=== PATIENT | female | born 1980 | race Caucasian/White ===

== ENCOUNTER 2020-09-17 09:00 | Outpatient (RCR) | payer MEDICAID, SELFPAY ==
--- NOTE | 2020-09-17 09:05 | BH.SGPN.GN ---
This psychotherapy group was provided via telehealth using two-way, real-time interactive telecommunication technology between the patients and the provider.?The interactive telecommunication technology included audio and video.? ?The patient was offered telemedicine as an option for care delivery during the COVID-19 pandemic and consented to this option. ?Patient location: [place] ?Provider located at [facility] Behaviors/Verbalizations/Mental Status: []Client alert and oriented, neatly dressed and groomed. Eye contact poor. Motor activity appropriate. Speech within normal limits. Affect flat, mood anxious. Thoughts linear, logical, no signs of hallucinations or delusions. Reviewed client?s symptom tracker, no risk for suicidal ideation, plan, or intent as of 09/17/20. Client Response/Progress/Benefit: []Client responded well to session, receptive to encouragement from group. Client's first day of IOP and reports feeling overwhelmed this morning. Client stated she came to IOP due to severe anxiety that was impacting client's ability to function at work. Client shared I don't know how to deal with it and I want to learn to cope. Client reports having thoughts that her co-workers are against her and is constantly worried about what people think of her. Received supportive feedback from peers and appeared to benefit from verbalizing her stressors. Will continue IOP tx to prevent decompensation, improve daily functioning, and reduce negative thoughts. Narrative Note: []
--- NOTE | 2020-09-17 11:19 | BH.SGPN.GN ---
This psychotherapy group was provided via telehealth using two-way, real-time interactive telecommunication technology between the patients and the provider. The interactive telecommunication technology included audio and video. The patient was offered telemedicine as an option for care delivery during the COVID-19 pandemic and consented to this option. Patient location: [place] Provider located at [facility] Behaviors/Verbalizations/Mental Status: []Client alert and oriented, casual dress, hygiene fair. Eye contact fair to good. Motor activity appropriate. speech and tone WNL. Affect constricted. mood anxious, depressed. Thoughts linear, logical, no signs of hallucinations or delusions. Client Response/Progress/Benefit: []Client first day in IOP tx. She remained engaged in session AEB listening throughout discussion and actively taking notes. Client attentive during psychoeducation about problem solving protocol and was nodding as well as taking notes throughout. Client provided limited input but listened as the group brainstormed strategies to promote making progress towards their desired chapter. Client completed the worksheet in which participants were challenged to identify one current barrier preventing progress and steps to begin addressing this barrier; however, declined to share with the group. Appeared to benefit from increased insight regarding her current ?Chapter? in life and reviewing strategies for promoting continued progress and prevent regression. Progress limited as client first day in IOP program. Will continue IOP tx to prevent decompensation, improve sx management, and increase healthy coping. Narrative Note: []
--- NOTE | 2020-09-18 09:00 | BH.SGPN.GN ---
This psychotherapy group was provided via telehealth using two-way, real-time interactive telecommunication technology between the patients and the provider. The interactive telecommunication technology included audio and video. The patient was offered telemedicine as an option for care delivery during the COVID-19 pandemic and consented to this option. Patient location: [place] Provider located at [facility] Behaviors/Verbalizations/Mental Status: []Client alert and oriented, casually dressed and groomed. Eye contact good. Motor activity WNL. Speech pressured. Affect congruent, mood anxious and depressed. Thoughts linear, logical, no signs of hallucinations or delusions. Reviewed client?s symptom tracker, no risk for suicidal ideation, plan, or intent as of 09/18/20. Client Response/Progress/Benefit: []Pt responded well to session, actively listening throughout and openly processed with group. Pt reports feeling ?stressed and anxious? this morning as she is still adjusting to group setting and is continuing to ruminate on a stressor experienced previous night. Pt noted that her daughter had been struggling with her homework and that pt was unable to help when she asked as the material was different from what pt had learned in school. Pt expressed that her daughter had become upset which made her anxious as well. She did well to identify healthy skills used in the moment such as positive self-talk and self-soothing to calm her daughter which aided in calming pt as well. Noted current stressor as having to help her daughter with homework again tonight but discussed trying to go into it more open minded and flexible. Pt receptive of and appeared to benefit from supportive feedback and encouragement provided by group. Recommended continued IOP tx improve anxiety management and though challenging skills, improve stability, as well as prevent decompensation. Narrative Note: []
--- NOTE | 2020-09-18 11:08 | BH.NA ---
Physical Data - Height/Weight Height: 1.5 m Weight:: 58.967 kg Weight in Pounds: 130.0 lbs Current Medication Compliance - Medication Compliance Do you take your medication as prescribed?: Yes Nutritional History - Appetite Nutritional Instructions:: If client shows signs of a swallowing problem, weight change of 10 pounds or more in the last month, or is on a diabetic diet, the physician will review and request a dietitian consult, as appropriate. All unintentional weight loss will be referred to the physician for decision on need for dietitian consult. Describe your appetite:: Good Additional nutritional information:: Client reports she is currently trying to lose weight. Functional Assessment - Sleep Pattern Describe any problems with sleeping: Client reports poor sleep due to ruminations, reporting 4-6 hours of sleep per night. Sensory/Communication Assess - Communication Problems Do you have difficulty understanding what people are saying?: No Medical Problems/History - Pain Assessment Do you have acute or chronic pain?: No Surgical History - Surgical History Have you had any surgeries? If so, list type and date:: No Substance Abuse - Substance Abuse Please describe substance abuse in the last 30 days:: Client denies alcohol, tobacco or drug use. Reports drinking one caffienated beverage per day. Mental Status Summary - Mental Status Significant Findings/Observations on Appearance and Mood:: Client alert and oriented x 4. Client assessed via telehealth. Clients voice normal rate and clear. Client appears mildly anxious. Client denies delusions/hallucinations. Client denies SI. Suicide Assessment - Suicidal Ideation Are you currently or have you been suicidal in the past?: No Suicidal Intentional Rating Scale (SIRS): No suicidal thoughts (past or present) Physician Notification: If Active suicidal thoughts/Will not contract for safety is checked, contact physician and document in the Physician Notification section below. Past Psychiatric History - MH Treatment Hx Past Psychiatric Medications:: Zoloft, Buspar, Prozac, Lexapro Age of first mental health symptoms: Client reports being diagnosed with bipolar only in the last few months. Client reports being diagnosed with anxiety, PTSD, and panic disorder within the last year. Client states she was on antidepressants for short periods of time in her 20's. Describe (age, circumstance, etc) any past hospitalizations: None. Current providers for mental health treatment (counselor, psychiatrist, mattress spring encaser, etc.): Client has team leader/research psychologist at [place] [id number] and counseling at [facility]. Fall Risk Assessment - Age Age: Less than 60 - Mental Status Mental Status: Willing & able to ask for assistance when needed - Physical Status Physical Status: No problems - Impairments Impairments: None - Elimination Elimination: Continent AND independent - Gait or Balance Gait or Balance: Walks independently - Hx of Falls History of falls in the past 6 months: No known history - Medications/Substances Psychotropics:: Antidepressants, Mood stabilizers Medications/substances used within the past 24 hours or ordered to administer: 1-2 of the medications/substances listed above - Total Score Total Points:: 1 RN Summary of Impressions - Impressions Recommendations: Include psychiatric and medical issues, treatment planning recommendations, and discharge planning needs. Impressions: Psychiatric Issues: bipolar disorder, NOS; generalized anxiety disorder, PTSD - Level of Care How do the client's current symptoms and functional deficits support need for this level of care?: Client states her mental health has been suffering since spring when the Covid pandemic started. Client reports anxiety over her daughter needing to do virtual learning and fear of her older parents getting sick from pandemic. Client is currently on short FMLA from work but states much anxiety over whether she will be required to go back to work in current mental health state. Client reports panic attacks almost daily, reporting chest pain, sweating, shortness of breath with attacks. Client also reports much rumination about work, stating with Covid pandemic, more things have been expected of her at work without more time given to do work. Client reports decreased sleep, decreased energy, hopelessness, and feelings of worthlessness. Client denies SI. IOP will promote gains and prevent further decompensation while providing social support and skills training.
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
--- NOTE | 2020-09-18 12:46 | BH.PSY.EVA_ITS ---
Initial Treatment Plan - Patient Information Visit Information: ADMISSION DATE: EXPECTED LOS: 4-6 weeks - Problems/Symptoms Problem #1:: Depression Symptom:: Sadness, anhedonia, decreased concentration, hopelessness, worthlessn ess, guilt, decreased appetite, biological disruption of sleep Problem #2:: Anxiety Symptom:: Rumination, panic attacks, avoidance, flashbacks, re-experiencing
--- NOTE | 2020-09-19 09:00 | BH.SGPN.GN ---
This psychotherapy group was provided via telehealth using two-way, real-time interactive telecommunication technology between the patients and the provider. The interactive telecommunication technology included audio and video. The patient was offered telemedicine as an option for care delivery during the COVID-19 pandemic and consented to this option. Patient location: [place] Provider located at [facility] Behaviors/Verbalizations/Mental Status: []Client alert and oriented, casually dressed. Eye contact poor. Motor activity appropriate. Speech within normal limits. Affect congruent, mood anxious. Thoughts linear, logical, no signs of hallucinations or delusions. Reviewed client?s symptom tracker, no risk or plan for suicide ideation as of 09/19/20. Client Response/Progress/Benefit: []Client responded well to group, engaged and participated throughout discussion. Client reported feeling anxious as she struggles to help her daughter with her math homework. Client shared she communicated with the adjunct mathematics instructor, where he reassured her that she was not alone and provided positive feedback. Client used positive thinking and affirmations to challenge negative thinking. Client benefited from group as client used healthy coping skills and communicated effectively. Client continues to struggle with managing anxiety and communicating her needs with family. Client will continue IOP to manage anxiety symptoms, improve daily functioning, and increase the use of healthy coping skills. Narrative Note: []
--- NOTE | 2020-09-19 10:10 | BH.SGPN.GN ---
This psychotherapy group was provided via telehealth using two-way, real-time interactive telecommunication technology between the patients and the provider. The interactive telecommunication technology included audio and video. The patient was offered telemedicine as an option for care delivery during the COVID-19 pandemic and consented to this option. Patient location: [place] Provider located at [facility] Behaviors/Verbalizations/Mental Status: []Client alert and oriented, neatly dressed and groomed. Eye contact poor. Motor activity appropriate. Speech within normal limits. Affect constricted , mood anxious. Thoughts linear, logical, no signs of hallucinations or delusions. Client Response/Progress/Benefit: []Client was an active participant AEB contributing to discussion and participating in activity. Connected with the topic of pitfalls and helped the group discuss barriers that keep them from choosing a healthier path to mental wellness such as pitfalls. Group worked together to identify examples of personal pitfalls which included; isolation, low self-esteem, wanting to quit, increased negative distortions, increased hopelessness, feeling overwhelmed,increased anxiety and stress, and feeling of burnout. Client shared personal examples of pitfalls such as catastrophizing and increased anxiety. Engaged during the activity and took on a leadership role to communicate with other group members to reach the group?s goal. Client benefited from group as she recognized the importance of trying new paths and understanding when communication is necessary. Client will continue IOP to reduce intensity of anxiety, increase the use of healthy coping skills, and improve daily functioning. Narrative Note: []
--- NOTE | 2020-09-19 11:11 | BH.SGPN.GN ---
Behaviors/Verbalizations/Mental Status: []Client alert and oriented, casual dress, hygiene tended to. Eye contact good. Motor activity appropriate. speech and tone WNL, limited input provided. Affect constricted, mood anxious. Thoughts linear, logical, no signs of hallucinations or delusions. Client Response/Progress/Benefit: []Client receptive of session, engaged throughout AEB providing input during activity and discussion. Continues to remain passive in participation though actively taking notes and reports applying materials learned outside of tx environment. Client attentive as group made connections between skills used to overcome ?pitfalls? in activity and addressing own personal pitfalls impacting mental health. She completed a worksheet identifying personal pitfalls impacting mental health progress; however, declined to share personal pitfalls with group. Client again remained attentive as group worked to brainstorm strategies to overcome pitfalls, though again declined to share a healthy skill she can use to work towards addressing one of her own identified pitfalls. Appeared to benefit from gaining insight on personal pitfalls and strategies to overcome these pitfalls. Progress limited as client continues to struggle with engagement in group, however does report improved mood related to encouragement provided by fellow participants. Client to continue IOP level of care to increase insight into healthy skills, improve emotion regulation, and prevent decompensation. Narrative Note: []
--- NOTE | 2020-09-19 11:42 | BH.COMM_ITS ---
Communication Note - Communication with Client Communication Note: Therpaist met with client to establish and build rapport. Client's psychosocial stressors included being unable to concentrate at work, always putting others first, and difficulty communicating her needs and feelings with others, which led her to IOP treatment. Client and therpaist discussed the importance of self-care and putting self first. Client presented as anxious and identified that a change in her routine is a trigger. This counseling session was provided via telehealth using two-way, real-time interactive telecommunication technology between the patient and the clinician. The interactive telecommunication technology included audio and video. The patient was offered telehealth as an option for care delivery during the COVID-19 pandemic and consented to this option. Patient location: [place]. Provider located at [facility]
--- NOTE | 2020-09-20 09:05 | BH.SGPN.GN ---
This psychotherapy group was provided via telehealth using two-way, real-time interactive telecommunication technology between the patients and the provider. The interactive telecommunication technology included audio and video. The patient was offered telemedicine as an option for care delivery during the COVID-19 pandemic and consented to this option. Patient location: [place] Provider located at [facility] Behaviors/Verbalizations/Mental Status: []Client alert and oriented, casual dress, hygiene tended to. Eye contact good. Motor activity appropriate. Speech within normal limits. Affect constricted, mood anxious. Thoughts linear, logical, no signs of hallucinations or delusions. Reviewed client?s symptom tracker, pt denies current suicidal thoughts or intention to date. Client Response/Progress/Benefit: []Patient responded well to session AEB actively listening and willing to share thoughts and feelings with group. Patient stated emotion today as ?really anxious? which she attributed to experiencing a panic attack prior to logging online for IOP group this morning. Pt did well to identify triggers for this and noted that running late with getting her kids ready for school had left her feeling overwhelmed. Expressed her boyfriend was supportive but does not fully understand her anxiety so she made the choice to follow-through with plans to attend group as she thought ?It might make me feel better?. Pt receptive of and appeared to benefit from supportive feedback and suggestions for reducing her anxiety during the break provided by the group. Pt expressed plans to take a break and go outside to ground herself as a result. Progress limited as pt continues to struggle with significant anxiety impacting daily functioning. Recommended continued IOP treatment to further increase anxiety management skills, continue to work on reducing anxiety provoking thoughts, as well as prevent decompensation. Narrative Note: []
--- NOTE | 2020-09-20 10:18 | BH.SGPN.GN ---
This psychotherapy group was provided via telehealth using two-way, real-time interactive telecommunication technology between the patients and the provider.?The interactive telecommunication technology included audio and video.? ?The patient was offered telemedicine as an option for care delivery during the COVID-19 pandemic and consented to this option. ?Patient location: [place] ?Provider located at [facility] Behaviors/Verbalizations/Mental Status: []Client alert and oriented, neatly dressed and groomed. Eye contact poor. Motor activity appropriate. Speech within normal limits. Affect constricted, mood anxious. Thoughts linear, logical, no signs of hallucinations or delusions. Client Response/Progress/Benefit: []Client active participant as shown by active listening and contributing in the small group discussion. Client listened to the discussion of self-care and the consequences of not practicing self-care. Client agreed with peers that it is important to practice self-care, but they all struggle with through. Group discussed consequences of not practicing self-care such as: poor physical health, poor work performance, and poor emotional regulation. Client participated in the discussion of the common myths about self-care and participated in the discussion on debunking of these myths. Client nodded that she has believed in some of these myths and made excuses to not practice self-care. Client?s group challenged the myths that self-care means a person is weak and self-care in unnecessary. Client seemed to benefit from increased awareness of the importance of self-care and challenging common myths that prevent practicing self-care. Will continue IOP tx to reduce negative thinking that reinforces depression and to improve work-related functioning. Narrative Note: []
--- NOTE | 2020-09-20 11:20 | BH.SGPN.GN ---
Behaviors/Verbalizations/Mental Status: []Client alert and oriented, casually dressed, hygiene appeared to be tended to. Eye contact fair. Motor activity appropriate. Speech within normal limits. Affect constricted, mood dysthymic. Thoughts linear, logical, no signs of hallucinations or delusions. Client Response/Progress/Benefit: []Client passive participant AEB client providing input when elicited by therapist, however appeared to listen attentively to peers. Listened to group discussion on the various areas of self-care, benefits, and types of self-care activities for each area. Client completed worksheet in which she identified current self-care practices and what self-care activities she wants to start using. Client reported she will focus on improving her physical self-care because she doesn't have healthy eating practices. Client stated she will work on improve self-care by focusing on eating at least one healthy meal a day. Progress noted as client has showed increased engagement in group AEB client being willing to share some of her thoughts and feelings with group. Will continue IOP tx to further promote the use of self-care practice, improve view of self and prevent decompensation. Narrative Note: []
--- NOTE | 2020-09-20 11:45 | BH.MDN ---
Multi-Disciplinary Note - Note 30-min Individual Time Started:: 12:27 Date: 09/20/20 Purpose of session/treatment goals addressed:: Purpose of session today was to discuss the importance and benefits from using healthy coping skills. Healthy coping skills that were discussed included: healthy communication with boyfriend, creating to-do lists, and practicing self-care. Symptoms/Behavior:: This counseling session was provided via telehealth using two-way, real-time interactive telecommunication technology between the patient and the clinician. The interactive telecommunication technology included audio and video. The patient was offered telehealth as an option for care delivery during the COVID-19 pandemic and consented to this option. Patient location: [place]. Provider located at [facility] Eye Contact:: Poor Motor Activity:: Restless Appearance:: Casual Speech:: Rapid Mood:: Anxious Affect:: Flat Thoughts:: Racing Staff Interventions:: Therapist engaged client by discussing the importance of using healthy coping skills. Therapist discussed how creating to-do lists can be benefical, as it is important to only allow a few priorities, and can be harmful to have too much on one's plate. Therapist discussed self-care and the strategy of AMARA. Therapist also engaged client in healthy communication on her thoughts and feelings when anxiety or distortive thinking increases. Client Response:: Client was engaged in discussion and responded well to session today. Client shared she does not know what to do with her time when group ends and when her daughter gets home from school. Client shared she never gets a break from her children as her boyfriend will leave her to handle situations alone. Client reported she needs breaks too and discussed with the therapist how to incorporate healthy communication to her boyfriend. Client also reported panic attacks increase when feeling out of control, irritated, and there is poor communication. Client reports her self-care consists of watching tv, taking walks, showering, and eating. Using the AMARA, client shared she will complete one thing to accomplish over the weekend, eating better and at least one meal a day to allow her to feel close to herself, and spending quality time with her daughter as one thing to enjoy over the weekend. Risks/Concerns:: Client denies any suicidal risk, ideation, or plan as of 09/20/20. Client reports anxious for this weekend as she will have many children at her home. Progress Toward Goals/Plan:: Client has learned some healthy coping skills to practice throughout the weekend to reduce anxiety symptoms. Client endorses anxiety, low self-esteem, and cognitive distortions.Client will continue IOP to increase the use of healthy coping skills, decrease depressive and anxiety symptoms, and improve daily functioning. Time Stopped:: 13:03
--- NOTE | 2020-09-20 14:58 | BH.MTP_ITS ---
Master Treatment Plan - Patient Information Program Physician:: Dr. Tiffany Joseph Primary Therapist:: Payton Suarez - Psychiatric Diagnoses Psychiatric Diagnoses:: Bipolar disorder, NOS; generalized anxiety disorder; PTSD - Estimated LOS Estimated LOS (in weeks):: 2 Problem/Goal #1 - Problem/Goal #1 Stated Goal:: Client will increase mood stability, reduce depression, and reduce isolative behaviors due to Bipolar disorder through the Intensive Outpatient Program. Description of Barriers: Client was newly diagnosed with bipolar, NOS in July 2020 and presents as depressed and anxious. Client is still learning about bipolar D/O and the impact is has on other MH symptoms. Client stated her workplace is a stressor and only has two weeks off to meet IOP treamtent goals. Client does not have much support, as she only relies on her boyfriend and counselor, describes herself as not a talker. Client reports many traumatic experiences growing up. Functional Impact: Client is a 40 year old female with a hx of Bipolar II. JOSE, Panic D/O, PTSD, & Boderline PD. No hx of psychiatric admissions. Referred by outpatient psychiatric due to mental health symptoms impacting her functioning. Client was recently placed on FMLA for the next two weeks. Client reports daily panic atacks at work, inablility to focus or concentrate, increased stress, and constant worry. Client reports she constantly dreads going to work and ruminates excessively which impacts sleep. Worsening symptoms since 07/2020. States I have to force myself out of bed I'm not good enough. Endorses poor sleep, poor appetite, low energy, low motivation, hopelessness, worthlessness, isolation, avoidance, and anhenonia. Significant tears and worry about COVID pandemic as well. Due to mental helth symtpoms and stressors at work, she is fearful of losing her job and causing conflict with coworkers. Denies suicidal ideations, plan, or intent. No hx of depression. Denies HI or psychosis. Denies substance abuse. Medication compliant. Due to daily panic attacks, MH symptoms impacts functioning and benefits from traditional outpatient recommended IOP level of care. Goal Relevant Strengths/Supports: Client presents as a motivated and a kind woman who wishes to improve her mental health. Client has experienced many traumatic experiences and for the first time is putting herself first. Client is willing to put in the work and effort to improve her mood and learn healthy coping skills. Client is supported from her boyfriend and children. Client wants to increase self-awareness by coming almost daily for treatment, as she is only in treatment for two weeks. - Objectives Objective #1 Stated Objective: Client will learn and utilize 2-3 healthy coping strategies to better manage depressive and mood symptoms. Interventions: Through group and individual sessions, therapist will help client identify triggers and warning signs of depression and emotional dysregulation including emotional, physical, and behavioral changes. Therapist will teach client various coping skills to manage her symptoms and give client tangible resources to use to regulate emotions. Therapist will use cognitive restructuring techniques and help client gain awareness of negative thoughts that reinforce depressive cycles. Therapist will help client incorporate behavioral activation and assist client in setting SMART goals. Discharge Criteria: Client will have met this goal when she can report learning and using at least 2 coping skills to manage depressive symptoms. Target Date: 09/27/20 Review Date: 09/27/20 Problem/Goal #2 - Problem/Goal #2 Stated Goal:: Client will increase emotional regulation and reduce intensity and duration of anxiety symptoms. Description of Barriers: Client was newly diagnosed with bipolar, NOS in July 2020 and presnets as depressed and anxious. Client is still learning about bipolar D/O and the impact is has on other MH symptoms. Client stated her workplace is a stressor and only has two weeks off to meet [facility] treamtent goals. Client does not have much support, as she only replies on her boyfriend and counselor as she is not a talker. Client reports many traumatic experiences growing up and her mother recently . Functional Impact: Client is a 40 year old female with a hx of Bipolar II. JOSE, Panic D/O, PTSD, & [place] PD. No hx of psychiatric admissions. Referred by outpatient psychiatric due to mental health symptoms impacting her functioning. Client was recently placed on FMLA for the next two weeks. Client reports daily panic atacks at work, inablility to focus or concentrate, increased stress, and constant worry. Client reports she constantly dreads going to work and ruminates excessively which impacts sleep. Worsens symptoms since 07/2020. States I have to force myself out of bed I'm not good enough. Endorses poor sleep, poor appetite, low energy, low motivation, hopelessness, worthlessness, isolation, avoidance, and anhenonia. Significant tears and worry about COVID pandemic as well. Due to mental helth symtpoms and stressors at work, she is fearful of losing her job and causing conflict with coworkers. Denies suicidal ideations, plan, or intent. No hx of depression. Denies HI or psychosis. Denies substance abuse. MEdication compliant. Due to daily panic attacks, MH symptoms impacts functioning and benefits from traditional outpatient recommended IOP level of care. Goal Relevant Strengths/Supports: Client presents motivated and a kind woman who wishes to improve her mental health. Client has experienced many traumatic ex periences and for the first time is putting herself first. Client is willing to put in the work and effort to improve her mood and learn healthy coping skills. Client is supported from her boyfriend and children. Client wants to increase self-awareness by coming almost daily for treatment, as she is only in treatment for two weeks. - Objectives Objective #1 Stated Objective: Client will identify 2-3 anxiety and crisis triggers and 2 calming coping skills to use when feeling anxious to reduce anxiety Interventions: Therapist will help client increase awareness of anxiety and crisis triggers and educate client on ways anxiety impacts overall health. Therapist will teach client various calming strategies to promote emotional regulation and reduction of anxiety. Therapist will assist client in identifying warning signs and teach client techniques to reduce, remove, or accept stressors to reduce anxiety. Therapist will discuss the importance of self-care, healthy relationships, and boundaries. Discharge Criteria: Client will have accomplished this goal when can report at least 2 triggers for anxiety and state using 2 calming strategies to manage symptoms. Target Date: 09/27/20 Review Date: 09/27/20
--- NOTE | 2020-09-23 09:00 | BH.SGPN.GN ---
This psychotherapy group was provided via telehealth using two-way, real-time interactive telecommunication technology between the patients and the provider. The interactive telecommunication technology included audio and video. The patient was offered telemedicine as an option for care delivery during the COVID-19 pandemic and consented to this option. Patient location: [place] Provider located at [facility] Behaviors/Verbalizations/Mental Status: []Client alert and oriented, casually dressed. Eye contact good. Motor activity appropriate. Speech within normal limits. Affect flat, mood anxious. Thoughts linear, logical, no signs of hallucinations or delusions. Reviewed client?s symptom tracker, no risk or plan for suicide ideation as of 09/23/20. Client Response/Progress/Benefit: []Client responded well to session, engaged and participated throughout discussion. Client reported challenging her negative thoughts this weekend as she felt frustrated with her boyfriend. Client shared she has a cognitive distortion of ?something bad will happen? and then will look for evidence to prove herself correct. Client benefited from group as other group members gave positive feedback on challenging distortions and looking for positive evidence to prove her distortions wrong. Progress was made as client was able to challenge distortions. Client will continue IOP to increase the use of healthy coping skills and decrease MH symptoms. Narrative Note: []
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
--- NOTE | 2020-09-23 10:05 | BH.SGPN.GN ---
This psychotherapy group was provided via telehealth using two-way, real-time interactive telecommunication technology between the patients and the provider. The interactive telecommunication technology included audio and video. The patient was offered telemedicine as an option for care delivery during the COVID-19 pandemic and consented to this option. Patient location: [place] Provider located at [facility] Behaviors/Verbalizations/Mental Status: []Client alert and oriented, casually dressed and appropriately groomed. Eye contact fair. Motor activity appropriate. Speech within normal limits. Affect congruent, mood anxious. Thoughts linear, logical, no signs of hallucinations or delusions. Client Response/Progress/Benefit: []Client receptive to session, passive participant and listened attentively to peers. Listened as the group brainstormed the positive and negative aspects of stress on physical and mental health. Client often nodding at examples of how stress impacts the body. Client reports she does not take time for breaks when client is stressed. Client did not go into detail about the stressors in client?s jar, but client did mention feeling anxious about work and family. Seemed to benefit from increased awareness of personal stressors and understanding impact of stress of the mind and body. Progress noted as client continues to take notes and gain insight during group. Client to continue IOP tx to promote use of healthy coping skills and reduce negative thinking that reinforces anxiety. Narrative Note: []
--- NOTE | 2020-09-23 11:11 | BH.SGPN.GN ---
This psychotherapy group was provided via telehealth using two-way, real-time interactive telecommunication technology between the patients and the provider. The interactive telecommunication technology included audio and video. The patient was offered telemedicine as an option for care delivery during the COVID-19 pandemic and consented to this option. Patient location: [place] Provider located at [facility] Behaviors/Verbalizations/Mental Status: [] Client alert and oriented, casually dressed and groomed. Eye contact good. Motor activity appropriate. Speech within normal limits. Affect congruent, mood depressed and anxious. Thoughts linear, logical, no signs of delusions or hallucinations. Client Response/Progress/Benefit: [] Client engaged in session AEB listening attentively to others and taking notes throughout. Client remained attentive during discussion about the 4 A's of managing stress. Client identified wanting to improve her ability to use acceptance, as well as adapt her mindset in regard to the COVID-19 pandemic. Discussed plans to use positive self-talk to increase personal acceptance of aspects of the pandemic outside her control as well as adapt her mindset to change her outlook on and begin addressing those with in her control. Reported plans to speak with her boss about delaying return to work. Client seemed to benefit from increased awareness of the impact of stress on mental health and increasing repertoire of stress management strategies. Progress noted in pt increased engagement in treatment environment. Will continue IOP tx to promote use of healthy coping skills, improve anxiety management, as well as prevent decompensation. Narrative Note: []
--- NOTE | 2020-09-23 13:39 | BH.MDN ---
Multi-Disciplinary Note - Note 45-min Individual Time Started:: 12:15 Date: 09/23/20 Purpose of session/treatment goals addressed:: Purpose of today's session was to provide psycho-education on anxiety and cognitive distortions, as well as the impact it has on one's mental health. This session would increase client's self awareness and understand how to better cope with MH symptoms. Symptoms/Behavior:: This counseling session was provided via telehealth using two-way, real-time interactive telecommunication technology between the patient and the clinician. The interactive telecommunication technology included audio and video. The patient was offered telehealth as an option for care delivery during the COVID-19 pandemic and consented to this option. Patient location: [place]. Provider located at [facility] Eye Contact:: Fair Motor Activity:: Appropriate Appearance:: Casual Speech:: Appropriate Mood:: Anxious Affect:: Congruent Thoughts:: Linear, Logical Staff Interventions:: Therapist provided education on anxiety and the six ways anxiety manifests such as affect, behavior, cognitive, dependence, excessive/extreme, and one's ability to function. Therapist explored the different ways anxiety has impacted. Therapist also provided education on the top ten cognitive disortions and discussed ways to challenge negative thoughts. Therapist assigned homework for client to identify top three cognitive distortions and catching the negative thoughts by writing them down. Client Response:: Client responded well to the session and engaged with discussion. Client provided examples of how anxiety effects her as she explained physical symptoms, feeling shut down/unmotivated, negative thinking, reassurance from boyfriend, and has difficulty mantaining a work life balance. Client reported feeling a connection to all 10 common cognitive distortions. Client shared she often thinks I am a failure and I cannot do something. Client reported she looks for negatives and patterns of negative thinking through her day to day life. Client stated she will work on homework as she identifies the top three disortions and catching her thoughts by writing them down. Risks/Concerns:: Client denied any suicidal risk, thought, or intent as of 09/23/20. Progress Toward Goals/Plan:: Client learned more about anxiety and disortive thinking in which increases healthy coping skills and self awareness. Client presented anxious and endorsed low self-confidence. Client continued to experience racing thoughts, increased irritability, and lacked concentration. Client will continue IOP to decrease anxiety, promote the use of healty coping skills, and decrease cognitive distortions. Time Stopped:: 13:05
--- NOTE | 2020-09-24 09:02 | BH.SGPN.GN ---
This psychotherapy group was provided via telehealth using two-way, real-time interactive telecommunication technology between the patients and the provider.?The interactive telecommunication technology included audio and video.? ?The patient was offered telemedicine as an option for care delivery during the COVID-19 pandemic and consented to this option. ?Patient location: [place] ?Provider located at [facility] Behaviors/Verbalizations/Mental Status: []Client alert and oriented, neatly dressed and groomed. Eye contact poor. Motor activity appropriate. Speech within normal limits. Affect constricted, mood anxious. Thoughts racing no signs of hallucinations or delusions. Reviewed client?s symptom tracker, no risk for suicidal ideation, plan, or intent as of 09/24/20. Client Response/Progress/Benefit: []Client responded well to session, receptive to feedback. Client reports feeling anxious and hopeful this morning. Client shared mornings tend to be rough for client as there is a lot to accomplish getting her daughter ready for school. Client reported there is a lot on her mind today because client's boyfriend and client do not always agree on parenting styles. Client shared this causes client to second guess her approach and self-depreciate. Receptive to feedback from peers and encouragement. Appeared to benefit from challenging negative thoughts in the moment. Will continue IOP tx to prevent decompensation of anxiety symptoms and improve functioning. Narrative Note: []
--- NOTE | 2020-09-25 09:00 | BH.SGPN.GN ---
Addendum entered and electronically signed by Imani Lua LSW 09/30/20 14:04: This psychotherapy group was provided via telehealth using two-way, real-time interactive telecommunication technology between the patients and the provider. The interactive telecommunication technology included audio and video. The patient was offered telemedicine as an option for care delivery during the COVID-19 pandemic and consented to this option. Patient location: [place] Provider located at [facility] Original Note: Behaviors/Verbalizations/Mental Status: []Client alert and oriented, casual dress, hygiene tended to. Eye contact good. Motor activity appropriate. Speech within normal limits. Affect congruent, mood euthymic and anxious. Thoughts linear, logical, no signs of hallucinations or delusions. Reviewed client?s symptom tracker, no signs of suicidal ideation, plan, or intent as of today. Client Response/Progress/Benefit: [] Client responded well to session AEB actively listening to others and willingly sharing thoughts and feelings. Client identified emotion today as ?hopeful?. Explained that she is feeling much better about her ability to manage daily stressors than she had earlier in the week. Went on to discuss several changes in routine when getting her daughter ready for school that would have previously led to panic but did not this morning. Client noted talking calmly to her daughter also helped client to remain calm, as well as using taking a break and positive self-talk to prevent panicking this morning. Shared that although she feels this is progress she continues to struggle with anxiety management. Additionally noted that her upcoming return to work date has been increasing anxious thoughts as well. Appeared to benefit from group encouragement and supportive environment. Recommended continued IOP tx to maintain gains, continue to work on improving stress management, as well as prevent decompensation. Narrative Note: []
--- NOTE | 2020-09-25 10:20 | BH.SGPN.GN ---
This psychotherapy group was provided via telehealth using two-way, real-time interactive telecommunication technology between the patients and the provider. The interactive telecommunication technology included audio and video. The patient was offered telemedicine as an option for care delivery during the COVID-19 pandemic and consented to this option. Patient location: [place] Provider located at [facility] Behaviors/Verbalizations/Mental Status: []Client alert and oriented, casually dressed and groomed. Eye contact good. Motor activity appropriate. Speech within normal limits. Affect congruent, mood anxious. Thoughts linear, logical, no signs of hallucinations or delusions. Client Response/Progress/Benefit: [] Client active participant in group AEB providing input when connecting with fellow participants, as well as listening attentively to peers. Group worked together to identify barriers to taking action in their lives which included fear of being seen as broken, lack of resources, comfort zone, fear of the unknown, feeling out of control, and self-stigma. Expressed connecting with fear and self-doubt. Group identified that taking action can help benefit mental health by: helping to better engage in daily living, feeling more ?authentic?, setting a healthy example for others, and improving self-confidence. Client identified personal areas to take back control over in life to include: negative thinking, not prioritizing her own needs, and putting others 1st. Client shared that if she could take control over these things, she would feel less anxious and more self-confident. Benefited from increased awareness of personal areas client wants to improve and benefits to taking action towards mental wellness. Will continue IOP tx to prevent decompensation, continue to promote application of skills for reduced anxiety, and increase use of internal coping skills. Narrative Note: []
--- NOTE | 2020-09-25 11:05 | BH.SGPN.GN ---
This psychotherapy group was provided via telehealth using two-way, real-time interactive telecommunication technology between the patients and the provider.?The interactive telecommunication technology included audio and video.? ?The patient was offered telemedicine as an option for care delivery during the COVID-19 pandemic and consented to this option. ?Patient location: [place] ?Provider located at [facility] Behaviors/Verbalizations/Mental Status: []Client alert and oriented, neatly dressed and groomed. Eye contact good. Motor activity appropriate. Speech within normal limits. Affect constricted, mood anxious. Thoughts linear, logical, no signs of hallucinations or delusions. Client Response/Progress/Benefit: []Client engaged in session AEB listening attentively to others and providing input during discussion. Client did well to participate during the activity in which participants were challenged to eliminate various items through group consensus. Client shared her ideas rather than being accommodating to peers. Client contributed to discussion of the barriers that occurred during the activity as well as the conflict resolution strategies. Client reviewed the worksheet on ten strategies to cope with conflict and client selected wanting to work on not jumping to conclusions or making assumptions about what another person is thinking or feeling. Progress noted AEB client reporting practicing positive self-talk during a stressful situation this morning. Will continue IOP tx to reduce the intensity of anxiety and to improve daily functioning. Narrative Note: []
--- NOTE | 2020-09-27 09:00 | BH.SGPN.GN ---
This psychotherapy group was provided via telehealth using two-way, real-time interactive telecommunication technology between the patients and the provider. The interactive telecommunication technology included audio and video. The patient was offered telemedicine as an option for care delivery during the COVID-19 pandemic and consented to this option. Patient location: [place] Provider located at [facility] Behaviors/Verbalizations/Mental Status: []Client alert and oriented, casually dressed. Eye contact poor. Motor activity appropriate. Speech within normal limits. Affect flat, mood dysthymic. Thoughts linear, logical, no signs of hallucinations or delusions. Reviewed client?s symptom tracker, no risk or plan for suicide ideation as of 09/27/20. Client Response/Progress/Benefit: []Client responded well to session, engaged and participated throughout discussion. Client reported feeling ?very anxious? as client encountered negative cognitive distortions of ?I?m a bad mom? after an encounter with her daughter this morning. Client was tearful and explained that she feels guilty that her daughter mimics her behaviors. Therapist explained they will work on challenging distortions during their individual session later today. Client benefited from group as other group members gave positive feedback to her and reminded client of her worth. Client will continue IOP to improve daily functioning, reduce anxiety symptoms, and increase the use of healthy coping skills. Narrative Note: []
--- NOTE | 2020-09-27 11:15 | BH.SGPN.GN ---
Behaviors/Verbalizations/Mental Status: []Client alert and oriented, neatly dressed and groomed. Eye contact fair. Motor activity appropriate. Speech within normal limits. Affect constricted, mood anxious. Thoughts linear, logical, no signs of hallucinations or delusions. Client Response/Progress/Benefit: []Client was engaged throughout AEB contribution to discussion. Client reported her comfort zone is holding her feeling in ?until I blow up.? Client shared her daughter has begun doing this as well which concerns client. Client reports wanting to work on verbalizing emotions with her boyfriend and daughter. Shared small steps she can take to step out of comfort zone as identifying her emotions and using positive self-talk. Appeared to benefit from psychoeducation and working with the group to brainstorm strategies to promote growth and get out of one?s comfort zone. Client will continue IOP tx reduce intensity, duration, and frequency of anxiety to improve daily functioning. Narrative Note: []
--- NOTE | 2020-09-27 14:02 | BH.MDN ---
Multi-Disciplinary Note - Note 30-min Individual Time Started:: 12:30 Date: 09/27/20 Purpose of session/treatment goals addressed:: Today's purpose of session was to practice challenging cognitive distoriongs and reframe negative thinking by using positivity and healthy coping skills. Using a CBT thought record, therapist and client practiced examples and how the thoughts, feelings, and behaviors can impact client and provoking situations. Symptoms/Behavior:: This counseling session was provided via telehealth using two-way, real-time interactive telecommunication technology between the patient and the clinician. The interactive telecommunication technology included audio and video. The patient was offered telehealth as an option for care delivery during the COVID-19 pandemic and consented to this option. Patient location: [place]. Provider located at [facility] Eye Contact:: Fair Motor Activity:: Appropriate Appearance:: Casual Speech:: Appropriate Mood:: Anxious Thoughts:: Linear, Logical Staff Interventions:: Therapist used a CBT thought log to help guide and educate client on how thoughts, feelings, and behaviors are linked and how they impact the client. Therapist helped client identify cognitive distortions she uses and discussed the benefits of changing a negative mindset into a positive one. Therapist discussed previous homework assignments and assigned future homework assignments for the weekend. Therapist discuused upcoming treatment and discussed expectations to discharge, as client can continue treatment for another seven days. Client Response:: Client responded well to the session and engaged throughout discussion. Client shared her frustration with her daughter's anger outbursts and communicated to therapist cognitive distortions surrounding being a parent, not being good enough, etc. Client was able to recognize her negative thinking patterns and came up with examples of positive thinking. Client's homework for the weekend is to write down negative automatic thoughts and then write down how to reframe the thought using positivity. Risks/Concerns:: Client denied any suicidal risk, thought, or intent as of 09/27/20. Progress Toward Goals/Plan:: Client was able to use healthy coping skills during the session to thought challenege and reframe negative thinking. Client was receptive and open with communication and asking questions when she did not understand something. Client was able to recognize positive thinking and the impact it can have on her mental health. Client presented anxious, but motivated. Client will continue IOP to increase the use of healthy coping skills, reframe cognitve distortions, and decrease anxiety symptoms. Time Stopped:: 01:00
--- NOTE | 2020-09-30 09:05 | BH.SGPN.GN ---
This psychotherapy group was provided via telehealth using two-way, real-time interactive telecommunication technology between the patients and the provider. The interactive telecommunication technology included audio and video. The patient was offered telemedicine as an option for care delivery during the COVID-19 pandemic and consented to this option. Patient location: [place] Provider located at [facility] Behaviors/Verbalizations/Mental Status: [] Client alert and oriented, casual dress, hygiene tended to. Eye contact good. Motor activity appropriate. Speech pressured. Affect constricted, mood anxious. Thoughts racing, no signs of hallucinations or delusions. Reviewed client?s symptom tracker, no signs of suicidal ideation, plan, or intent as of today. Client Response/Progress/Benefit: []Client responded well to session AEB actively listening to others and willingness to process with group, though remaining mostly passive throughout. Stated emotion today as ?anxious?. Explained that her anxiety is currently due to changes in her daughter?s schoolings due to the COVID-19 pandemic. Expressed that the entire 1st grade has been told to quarantine for the next two weeks and all classes will be online due to a teacher being diagnosed with COVID. Client expressed struggling to adjust to this new routine and experiencing an influx in anxious thoughts as a result. Discussed however that she has been using self-talk and reaching out to supports to manage the stressor rather than avoiding or jumping to worst case scenario. Client expressed this as progress as in the past she would be experiencing more frequent panic as a result of the changes. Client seemed to benefit from expressing thoughts and feelings, as well as supportive structure of the group. Recommended continued IOP tx to increase application of healthy coping skills, continue to work on anxiety and depression management, as well as prevent decompensation. Narrative Note: []
--- NOTE | 2020-09-30 10:20 | BH.SGPN.GN ---
Addendum entered and electronically signed by Imani Lua LSW 09/30/20 14:06: This psychotherapy group was provided via telehealth using two-way, real-time interactive telecommunication technology between the patients and the provider. The interactive telecommunication technology included audio and video. The patient was offered telemedicine as an option for care delivery during the COVID-19 pandemic and consented to this option. Patient location: [place] Provider located at [facility] Original Note: Behaviors/Verbalizations/Mental Status: []Client alert and oriented, casually dressed. Eye contact good. Motor activity appropriate. Speech within normal limits, quiet. Affect constricted, mood anxious. Thoughts linear, logical, no signs of hallucinations or delusions. Client Response/Progress/Benefit: []Client engaged throughout session AEB providing input when prompted, nodding when connecting with others, as well as taking notes throughout. Connected with discussion on crisis development and how coping with external crises by using unhealthy coping skills could result in a personal crisis. Client noted connecting with how a small stressor could lead to a panic attack. Group reflected on the importance of having awareness of personal warning signs in order to prevent reaching crisis point. Group identified potential warning signs for crisis and client completed the personal warning signs worksheet. Client identified personal crisis warning signs to include: increased crying, difficulties concentrating, and more rapid mood changes. Client benefited by increasing awareness of what leads to crisis and personal warning signs. Progress noted in self-report of improved implementation of self-talk and calming skills to prevent external stressors from escalating to point of panic. Though continues to struggle with significant intrusive thoughts causing anxiety. Will continue IOP tx to increase healthy coping and use of thought challenge skills, improve anxiety management, as well as prevent decompensation. Narrative Note: []
--- NOTE | 2020-10-01 09:03 | BH.SGPN.GN ---
This psychotherapy group was provided via telehealth using two-way, real-time interactive telecommunication technology between the patients and the provider. The interactive telecommunication technology included audio and video. The patient was offered telemedicine as an option for care delivery during the COVID-19 pandemic and consented to this option. Patient location: [place] Provider located at [facility] Behaviors/Verbalizations/Mental Status: []Client alert and oriented, casual dress, hygiene tended to. Eye contact poor. Motor activity appropriate. Speech rapid. Affect constricted, mood anxious. Thoughts linear, logical, no signs of hallucinations or delusions. Reviewed client?s symptom tracker, pt denies current suicidal thoughts or intention to date. Client Response/Progress/Benefit: []Patient responded well to session as evidenced by her listened attentively to others and sharing thoughts and feelings openly. Patient reported feeling anxious today because her boyfriend and stepdaughter are home continue to quarantine. Patient stated she is used to being alone during the day and now her routine feels a little off. Patient reports she is also anxious about how her daughters in response to being able to get homework completed because now her very and the family will be home which is not the typical situation. Patient reported last night she was able to help her daughter complete homework and it was a smoother process compared to other times. Patient receptive to feedback from peers. Patient to continue IOP level of care to increase healthy coping skills, continue to identify and challenge negative thought patterns, and prevent decompensation. Narrative Note: []
--- NOTE | 2020-10-01 10:09 | BH.SGPN.GN ---
This psychotherapy group was provided via telehealth using two-way, real-time interactive telecommunication technology between the patients and the provider. The interactive telecommunication technology included audio and video. The patient was offered telemedicine as an option for care delivery during the COVID-19 pandemic and consented to this option. Patient location: [place] Provider located at [facility] Behaviors/Verbalizations/Mental Status: []Client alert and oriented, casually dressed and appropriately groomed. Eye contact good. Motor activity appropriate. Speech within normal limits, minimal input provided. Affect constricted, mood anxious. Thoughts linear, logical, no signs of hallucinations or delusions. Client Response/Progress/Benefit: []Client responded well to session, attentive, providing input, and taking notes throughout. Group discussed benefits of healthy communication on mental health which included: let?s others know what we are feeling, gets our needs met, prevents avoidable problems, improves relationships, and helps establish healthier boundaries. Group additionally discussed potential barriers to communication including: shutting down, passive-aggressive communication, assumptions, being vague, and poor emotional regulation. Client noted connecting with barrier of shutting down and not communicating when anxious. Remained attentive during psychoeducation on the four communication styles. Client self-reports identifying most with the passive and passive-aggressive communication styles. Shared that she often bottles things up and then communicates through behaviors which has further reinforced anxiety and had impacts on relationships as well. Benefited from increased insight regarding own communication style and impacts this has on overall mental health. Progress remains variable as client continues to struggle with relying on reassurance from others; however, has been making progress in overall ability to implement healthy anxiety management skills in the moment. Client will continue in IOP to improve healthy coping and reduce avoidance behaviors that reinforce anxiety and depressive symptoms. Narrative Note: []
--- NOTE | 2020-10-01 11:11 | BH.SGPN.GN ---
This psychotherapy group was provided via telehealth using two-way, real-time interactive telecommunication technology between the patients and the provider.?The interactive telecommunication technology included audio and video.? ?The patient was offered telemedicine as an option for care delivery during the COVID-19 pandemic and consented to this option. ?Patient location: [place] ?Provider located at [facility] Behaviors/Verbalizations/Mental Status: []Client alert and oriented, neatly dressed and groomed. Eye contact fair. Motor activity appropriate. Speech within normal limits. Affect congruent, mood anxious. Thoughts linear, logical, no signs of hallucinations or delusions. Client Response/Progress/Benefit: []Client responded well to session AEB client listening attentively to others and providing input during small group discussion on the pay offs and costs of the different communication styles. Attentive during psychoeducation on assertiveness strategies to improve communication, and client selected an assertiveness skill to practice. Client selected the skill be express her needs rather than using minimizing language such as ?I?m fine when I?m really not.? Client plans to do this by working on challenging mind-reading thoughts and giving her boyfriend more details on her mood state. Client seemed to benefit from increasing awareness of healthy strategies to improve communication. Progress noted in client?s receptiveness to thought challenging, but client continues to struggle with challenging thoughts on her own. Will continue IOP tx to promote the use of healthy coping skills, increase emotional resilience, and improve functioning. Narrative Note: []
--- NOTE | 2020-10-02 09:05 | BH.SGPN.GN ---
Behaviors/Verbalizations/Mental Status: [] Eye contact is good. Motor activity is appropriate. Appearance is casual. Speech is Appropriate. Mood is depressed. Affect is flat. Thoughts are linear and logical. No evidence of psychosis. Reviewed daily check in sheet and no reports of suicidal ideations or intent. Client Response/Progress/Benefit: [] Pt participated when prompted. Attentive during group discussion. Pt tearful during her check-in. Reports that she just recieved news that her mother's test indicated that she has lung cancer. Pt immediately began to think about how she was going to tell her daughter about the diagnosis and ultimately break the news when her mother dies. Group was supportive and provided feedback on staying in the moment and trying not to catastrophize and what if worst case scenarios. Pt admits that her mother has suggested not telling grand-daughter until more tests are done and that they are still early in the process. With re-direction pt able to counter catastrophizing thoughts. Progress noted per pt report. Benefited from group support, encouragement, and feedback. Will continue in IOP to maintain gains, prevent decompensation, and increase coping skills. Narrative Note: [] This psychotherapy group was provided via telehealth using two-way, real-time interactive telecommunication technology between the patients and the provider.?The interactive telecommunication technology included audio and video.? ?The patient was offered telemedicine as an option for care delivery during the COVID-19 pandemic and consented to this option. ?Patient location: [place] ?Provider located at [facility]
--- NOTE | 2020-10-02 10:20 | BH.SGPN.GN ---
This psychotherapy group was provided via telehealth using two-way, real-time interactive telecommunication technology between the patients and the provider.?The interactive telecommunication technology included audio and video.? ?The patient was offered telemedicine as an option for care delivery during the COVID-19 pandemic and consented to this option. ?Patient location: [place] ?Provider located at [facility] Behaviors/Verbalizations/Mental Status: []Client alert and oriented, neatly dressed and groomed. Eye contact fair. Motor activity appropriate. Speech within normal limits. Affect congruent-tearful, mood anxious and depressed. Thoughts linear, logical, no signs of hallucinations or delusions. Client Response/Progress/Benefit: []Client responded somewhat well to session, attentive during discussion and engaged during the activity, but quiet. Group reported even though change can be scary, change can be positive. Discussed how change can lead to improved mental health and relationships. Client listened as the group to identified barriers to making change, which included: fear of failure, uncomfortable emotions, and putting others first. Client participated in the activity where they identified and discussed the emotions related to change. Client?s emotion was ?torn? and the group discussed examples of feeling torn about change. Benefited from increased awareness and understanding of emotions, benefits, and barriers related to change. Progress noted in client?s willingness to participate today instead of isolate. Will continue IOP tx as client can benefit from challenging anxious thoughts and increasing interpersonal effectiveness skills. Narrative Note: []
--- NOTE | 2020-10-02 14:59 | BH.MDN ---
Multi-Disciplinary Note - Note 30-min Individual Time Started:: 11:30 Date: 10/02/20 Purpose of session/treatment goals addressed:: Pt was noted to be tearful during telehealth group. Pt was placed in a breakout room and this clinician met with her individually to discuss distress. Symptoms/Behavior:: This psychotherapy group was provided via telehealth using two-way, real-time interactive telecommunication technology between the patients and the provider. The interactive telecommunication technology included audio and video. The patient was offered telemedicine as an option for care delivery during the COVID-19 pandemic and consented to this option. Patient location: [place]. Provider located at [facility] Eye Contact:: Fair Motor Activity:: Appropriate Appearance:: Casual Speech:: Rapid Mood:: Anxious, Dysthymic Affect:: Congruent - tearful Thoughts:: Racing, No evidence of hallucinations/delusions noted Staff Interventions:: Provied emotional support. Challenged and reframed thoughts. Problem-solved emotional release strategies client can implement today. Client Response:: Client responded well to session, open to meeting with therapist. Client reports feeling sad and anxious today due to finding out there is a mass in her mother's lungs. Client stated her mother has to get additional tests done, but client is concerned it is cancerous. Client shared she has been catastrophizing and thinking about how am I going to tell my daughter her grandma is dying. Client did well to combat catastrophizing thoughts and recenter herself. Client and therapist discussed the five types of coping skills and identified that client could benefit from emotional release, self-love, and thought challenging today. Client plans to write a letter to herself for emotional release, use positive affirmations for thought challenging, and cook with her daughter rodolfo and listen to music for self-love. Client reported an improved mood at the end of session and was laughing. Risks/Concerns:: Client denies any suicidal ideations, plan, or intent as of 10/02/20. Future oriented and has protective factors. Progress Toward Goals/Plan:: Client has been doing well with using self-care and has increased self-awareness of distortions. Client reported increased anxiety today due to news that her mother may have cancer. Endorses ruminations, difficulty concentrating, and crying spells. Will continue IOP tx to stabilize mood, increase the use of healthy coping skills, and reduce distortions. Time Stopped:: 12:05
--- NOTE | 2020-10-03 09:00 | BH.SGPN.GN ---
This psychotherapy group was provided via telehealth using two-way, real-time interactive telecommunication technology between the patients and the provider. The interactive telecommunication technology included audio and video. The patient was offered telemedicine as an option for care delivery during the COVID-19 pandemic and consented to this option. Patient location: [place] Provider located at [facility] Behaviors/Verbalizations/Mental Status: []Client alert and oriented, casually dressed. Eye contact poor. Motor activity appropriate. Speech within normal limits. Affect flat, mood anxious and dysthymic. Thoughts linear, logical, no signs of hallucinations or delusions. Reviewed client?s symptom tracker, no risk or plan for suicide ideation as of 10/03/20. Client Response/Progress/Benefit: []Client responded well to session, engaged and participated throughout discussion. Client reported feeling ?scared and hopeful? as she recently found out her mother might have lung cancer. Client shared she completed her goal of writing a letter and spending quality time with her daughter. Client shocked herself as she was hesitant about writing a letter to herself, but wrote three full pages. Client shared she tried to be positive and not jump to conclusions. Client benefited from group as client gained positive feedback and ideas about journaling. Client will continue IOP to increase the use of healthy coping skills, decrease cognitive distortions, and improve mood. Narrative Note: []
--- NOTE | 2020-10-03 10:10 | BH.SGPN.GN ---
This psychotherapy group was provided via telehealth using two-way, real-time interactive telecommunication technology between the patients and the provider. The interactive telecommunication technology included audio and video. The patient was offered telemedicine as an option for care delivery during the COVID-19 pandemic and consented to this option. Patient location: [place] Provider located at [facility] Behaviors/Verbalizations/Mental Status: []Client alert and oriented, casually dressed, hygiene appeared to be tended to. Eye contact poor. Motor activity appropriate. Speech within normal limits. Affect constricted, mood anxious and dysthymic. Thoughts linear, logical, no signs of hallucinations or delusions. Client Response/Progress/Benefit: []Client responded well to session, attentive and engaged throughout discussion and activity. Client reported the impacts of fearing failure include negative thinking, jumping to worst case scenarios, and not being supported by others. Client seemed to connect how failures can lead to positive changes. Client appeared to benefit from gaining awareness of the impact fear of failure can have on one?s mental health and wellbeing. Will continue IOP to continue the use of healthy coping skills and increase self confidence. Narrative Note: []
--- NOTE | 2020-10-03 11:13 | BH.SGPN.GN ---
This psychotherapy group was provided via telehealth using two-way, real-time interactive telecommunication technology between the patients and the provider. The interactive telecommunication technology included audio and video. The patient was offered telemedicine as an option for care delivery during the COVID-19 pandemic and consented to this option. Patient location: [place] Provider located at [facility] Behaviors/Verbalizations/Mental Status: []Client alert and oriented, casual appearance. Eye contact good. Motor activity appropriate. Speech within normal limits. Affect constricted, mood anxious. Thoughts linear, logical, no signs of hallucinations or delusions Client Response/Progress/Benefit: []Client responded well to session, participating during the group activity. Client completed the fear of failure worksheet and reported that fear of failure has kept client from trying new things for fear that she will not be good at them. Client able to identify barriers that reinforce fear of failure which included: fear of judgement, avoiding, and ?I can?t? statements. Client attentive during discussion of the different strategies to help overcome fear of failure. Group identified strategies and client selected opposite action, keeping track of her wins, and reminding herself of times when the worst-case scenario did not happen. Client appeared to benefit from learning ways to overcome fear of failure. Will continue IOP tx to promote use of healthy coping skills and reduce anxiety. Narrative Note: []
--- NOTE | 2020-10-04 09:00 | BH.SGPN.GN ---
This psychotherapy group was provided via telehealth using two-way, real-time interactive telecommunication technology between the patients and the provider. The interactive telecommunication technology included audio and video. The patient was offered telemedicine as an option for care delivery during the COVID-19 pandemic and consented to this option. Patient location: [place] Provider located at [facility] Behaviors/Verbalizations/Mental Status: []Client alert and oriented, casually dressed. Eye contact fair. Motor activity appropriate. Speech within normal limits. Affect constricted, mood anxious. Thoughts linear, logical, no signs of hallucinations or delusions. Reviewed client?s symptom tracker, no risk or plan for suicide ideation as of 10/04/20. Client Response/Progress/Benefit: []Client responded well to session, engaged and participated throughout discussion. Client reported feeling ?confused? as client has a current stressor arise after yesterday?s group. Client shared that her daughter brought home a note from a friend from school that mentioned suicidal ideations and client reported feeling conflicted about what next steps to take. Client asked other group members for feedback on what to do, as client felt obligated to report her findings to the school faculty. Client benefited from group by gaining positive feedback from group members. Therapist assured client client that they would talk more in depth during their individual session later that day. Client will continue IOP to continue the use of healthy coping skills, improve daily functioning, and decrease distortive thinking. Narrative Note: []
--- NOTE | 2020-10-04 10:05 | BH.SGPN.GN ---
This psychotherapy group was provided via telehealth using two-way, real-time interactive telecommunication technology between the patients and the provider. The interactive telecommunication technology included audio and video. The patient was offered telemedicine as an option for care delivery during the COVID-19 pandemic and consented to this option. Patient location: [place] Provider located at [facility] Behaviors/Verbalizations/Mental Status: []Client alert and oriented, casual dress, hygiene tended to. Eye contact fair. Motor activity appropriate. Speech within normal limits. Affect flat, mood anxious. Thoughts linear, logical, no signs of hallucinations or delusions. Client Response/Progress/Benefit: []Client responded well to session, listened to others share throughout discussion. Engaged during psychoeducation portion reviewing fixed mindset. Client connected with traits of the fixed mindset and worked with group to identify how a fixed mindset can impact our mental health which included: increased distortions, negative self-talk, ruminations, all or nothing thinking, self-fulfilling prophecies, unchanging mindset, and keeps us from accomplishing tasks/goals. Client reported ?negative self-talk and cognitive distortions? as barriers to see change as opportunities. Benefited from group by increasing awareness of how one's mindset impacts mental health. Progress noted AEB client recognized the importance of obtaining a positive mindset and views of changes and opportunities. Client will continue IOP to continue the use of healthy coping skills and decrease MH symptoms. Narrative Note: []
--- NOTE | 2020-10-04 13:56 | BH.MDN_ITS ---
Multi-Disciplinary Note - Note 45-min Individual Time Started:: 11:31 Date: 10/04/20 Purpose of session/treatment goals addressed:: Purpose of today's session was to discuss upcoming discharge and create a action plan for client to return back to work after discharge from [facility]. Client and therapist discussed a stressor and problem solving strategies. Symptoms/Behavior:: This counseling session was provided via telehealth using two-way, real-time interactive telecommunication technology between the patient and the clinician. The interactive telecommunication technology included audio and video. The patient was offered telehealth as an option for care delivery during the COVID-19 pandemic and consented to this option. Patient location: [place]. Provider located at [facility] Eye Contact:: Fair Motor Activity:: Appropriate Appearance:: Casual Speech:: Rapid Mood:: Anxious Affect:: Congruent Thoughts:: Linear, Logical Staff Interventions:: Therapist discussed problem solving strategies with client about ideas for client's current stressors. Therapist discussed the importance of advocacy and self-care as therapist and client discussed the gameplan of going back to work. Therapist explored questions client can ask her supervisor mixing as she gets ready to go back to work like expectations, shift reduction, healthy communication and supports within the work place. Therapist helped client recognize warning signs, triggers, and internal support apart of her action plan. Client Response:: Client responded well to session, engaged throughout discussion. Client shared a stressor with her daughter and her school friend. Client explained she needed to communicate with the special education preschool teacher to discuss stressors with her daughter. Client also discussed action plan to return back to work by using healthy coping skills like reframing negative thoughts, using affirmations daily, positive self-talk, journaling, deep breathing, healthy communication with supports, and practicing more self-care. Client recognized the importance of advocacy and understanding the limitations of what she can control. Risks/Concerns:: Client denied any suicidal risk, thought, or intent as of 10/04/20. Client remains positive and future oriented. Progress Toward Goals/Plan:: Client made progress towards treatment goals as client is using healthy coping skills like self-care and mindfulness. Client reports spending quality time with her supports and is remaining postive towards returning of work within a couple weeks. Client endorses anxiety and some distortive thinking, but remains positive. Client will continue IOP to continue the use of healthy coping skills, improve mood, and increase self-confidence. Time Stopped:: 12:19
--- NOTE | 2020-10-07 09:00 | BH.SGPN.GN ---
This psychotherapy group was provided via telehealth using two-way, real-time interactive telecommunication technology between the patients and the provider. The interactive telecommunication technology included audio and video. The patient was offered telemedicine as an option for care delivery during the COVID-19 pandemic and consented to this option. Patient location: [place] Provider located at [facility] Behaviors/Verbalizations/Mental Status: []Client alert and oriented, casually dressed. Eye contact fair. Motor activity appropriate. Speech within normal limits. Affect flat and tearful, mood dysthymic and anxious. Thoughts linear, logical, no signs of hallucinations or delusions. Reviewed client?s symptom tracker, no risk or plan for suicide ideation as of 10/07/20. Client Response/Progress/Benefit: []Client responded well to session, engaged and participated throughout discussion. Client reported feeling ?sad? after a tearful check in. Client reported having a low weekend with low motivation and feeling depressed. Client spent quality time with daughter and mother over the weekend. Client shared that her daughter told the client's mother that client is sad all the time. Client benefited from group as other group members helped her recognize positives, reframed negative thinking, and gave ideas to better communicate with her daughter. Progress noted as client used healthy coping skills like opposite action, quality time, and challenging negative thoughts. Client will be discharged from [facility] tomorrow. Could benefit from one more day of [facility] to manage anxiety by taking part in group sessions and discussions. Narrative Note: []
--- NOTE | 2020-10-07 10:13 | BH.SGPN.GN ---
This psychotherapy group was provided via telehealth using two-way, real-time interactive telecommunication technology between the patients and the provider. The interactive telecommunication technology included audio and video. The patient was offered telemedicine as an option for care delivery during the COVID-19 pandemic and consented to this option. Patient location: [place] Provider located at [facility] Behaviors/Verbalizations/Mental Status: []Client alert and oriented, casually dressed and appropriately groomed. Eye contact poor. Motor activity appropriate. Speech within normal limits. Affect flat, mood anxious. Thoughts linear, logical, no signs of hallucinations or delusions. Client Response/Progress/Benefit: []Client active participant as evidenced by taking notes throughout session and nodding. Client connected with the discussion about how distorted thought patterns can reinforce mental health symptoms and impact relationships. Client agreed with peers that a low or anxious mood can cause more negative automatic thoughts. Client noted that she connects with overgeneralizing, mental filter, and predicting the future. Appeared to benefit from increasing awareness of cognitive distortions and how they can impact emotions and behaviors. Will continue IOP tx to promote use of healthy coping skills and establish aftercare. Narrative Note: []
--- NOTE | 2020-10-07 11:20 | BH.SGPN.GN ---
This psychotherapy group was provided via telehealth using two-way, real-time interactive telecommunication technology between the patients and the provider. The interactive telecommunication technology included audio and video. The patient was offered telemedicine as an option for care delivery during the COVID-19 pandemic and consented to this option. Patient location: [place] Provider located at [facility] Behaviors/Verbalizations/Mental Status: []Client alert and oriented, casual dress, hygiene tended to. Eye contact fair. Motor activity appropriate. Speech rapid. Affect constricted, mood anxious. Thoughts linear, logical, no signs of hallucinations or delusions Client Response/Progress/Benefit: []Client was an engage participant AEB client taking notes, listening attentively to peers and completing worksheet. Client attentive during psychoeducation and additional discussion on cognitive distortions. Client stated she most often uses fortune telling distortion. Client stated this distortion increases her anxiety because thinks of worst case scenario. Client engaged in discussion about how to reframe distorted thoughts into more realistic, rational statements. Client shared her distorted thought is I'll never get all this housework done. Client able to reframe distorted thought to Today is a new day. If I take one task at a time I will be able to get it done. Client seemed to benefit from practicing identifying and reframing distorted thoughts. To continue IOP to continue use of healthy coping, decrease anxiety, and prevent decompensation. Narrative Note: []
--- NOTE | 2020-10-08 09:00 | BH.SGPN.GN ---
Behaviors/Verbalizations/Mental Status: []Client alert and oriented, casual dress, hygiene tended to. Eye contact good. Motor activity appropriate. Speech within normal limits. Affect congruent, mood anxious. Thoughts linear, logical, no signs of hallucinations or delusions. Reviewed client?s symptom tracker, no signs of suicidal ideation, plan, or intent as of today. Client Response/Progress/Benefit: [] Client responded well to session, actively listening and willing to process with group. Client identified emotion today as ?anxious?. Shared that this is due to ongoing issues at her place of employment regarding closures due to the pandemic. 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 Identified largest concern as sending her daughter to client?s parents? house for class while client is at work. Shared worrying that she will potentially expose her parents to the virus. Expressed that although this has increased her anxieties, she is doing well not to fixate on it and remind herself to focus on what is in her control. Expressed plans to engage in healthy distraction via taking a walk or coloring with her daughter. Identified improved ability to manage anxious thoughts as progress. Recommended continued IOP tx to encourage healthy change behaviors, further reduce anxiety, and prevent decompensation. Narrative Note: []
--- NOTE | 2020-10-08 10:03 | BH.SGPN.GN ---
This psychotherapy group was provided via telehealth using two-way, real-time interactive telecommunication technology between the patients and the provider.?The interactive telecommunication technology included audio and video.? ?The patient was offered telemedicine as an option for care delivery during the COVID-19 pandemic and consented to this option. ?Patient location: [place] ?Provider located at [facility] Behaviors/Verbalizations/Mental Status: []Client alert and oriented, casually dressed and groomed. Eye contact fair. Motor activity appropriate. Speech within normal limits. Affect constricted, mood anxious. Thoughts linear, logical, no signs of hallucinations or delusions. Client Response/Progress/Benefit: Client engaged participant AEB pt providing input at times during group session, taking notes and listened attentively to peers. Group discussed healthy versus unhealthy coping skills and what contributes to people using unhealthy skills. The group stated unhealthy coping skills tend to be easy and habitual, temporary relief, and learned behaviors. Client stated she uses isolation, sarcasm, and avoidance as ways to cope with her problems. Has insight those skills do not help in the long-term. Client gained awareness of unhealthy coping skills she has used for temporary relief. Client seemed to benefit from increased awareness of importance of increasing healthy coping skills and consequences of utilizing unhealthy coping skills. Client will continue IOP tx to maintain gains, continue to use healthy coping skills and prevent decompensation.
--- NOTE | 2020-10-08 11:12 | BH.SGPN.GN ---
This psychotherapy group was provided via telehealth using two-way, real-time interactive telecommunication technology between the patients and the provider. The interactive telecommunication technology included audio and video. The patient was offered telemedicine as an option for care delivery during the COVID-19 pandemic and consented to this option. Patient location: [place] Provider located at [facility] Behaviors/Verbalizations/Mental Status: []Client alert and oriented, casually dressed and groomed. Eye contact fair. Motor activity appropriate. Speech within normal limits. Affect constricted, mood anxious. Thoughts linear, logical, no signs of hallucinations or delusions. Client Response/Progress/Benefit: []Client responded well to session, actively listening and providing examples. Group discussed the different categories of coping skills which included distraction, emotional release, grounding, self-love, and thought challenging. Client participated in creating a coping skills ?menu? from the five categories of coping skills. Client's coping skill menu included: reading, yoga, guided meditation, keeping track of daily wins, and naming the positive she has in life. Progress noted in client's self-report of increased confidence in her ability to cope with stressors. Appeared to benefit from increasing repertoire of healthy coping skills. Will discharge from IOP this week as client returns to work next week and has met tx plan goals. Narrative Note: []
--- NOTE | 2020-10-14 12:06 | BH.DS_ITS ---
Discharge Summary - Demographics Date of Admission:: 09/18/20 Discharge Date: 10/08/20 Presenting Problems at Admission:: Client was a 40 year old female with a hx of Bipolar II. JOSE, Panic D/O, PTSD, & Boderline PD. No hx of psychiatric admissions. Referred by outpatient psychiatric due to mental health symptoms impacting her functioning. Client was recently placed on FMLA for the next two weeks. Client reported daily panic atacks at work, inablility to focus or con centrate, increased stress, and constant worry. Client reported she constantly dreads going to work and ruminates excessively which impacts sleep. Worsened symptoms since 07/2020. Stated I have to force myself out of bed I'm not good enough. Endorsed poor sleep, poor appetite, low energy, low motivation, hopelessness, worthlessness, isolation, avoidance, and anhenonia. Significant tears and worry about COVID pandemic as well. Due to mental helth symtpoms and stressors at work, she was fearful of losing her job and causing conflict with coworkers. Denied suicidal ideations, plan, or intent. No hx of depression. Denied HI or psychosis. Denies substance abuse. Medication compliant. Due to daily panic attacks, MH symptoms impacted functioning and benefited from traditional outpatient recommended [facility] level of care. Discharge Diagnoses:: Bipolar NOS, JOSE (F41.1), PTSD Reason for Discharge:: Client has made significant progress towards her treatment goals AEB her reduction in DSM-5 symptom scores, self-report of increased ability to regulate emotions, and consistent use of healthy coping skills. Client no longer meets criteria for [facility] level of care and will transition to outpatient counseling and potentially [facility] aftercare. - Treatment Progress During Treatment & Response: Client responded well to treatment and demonstrated progress towards her treatment goals AEB reduction in DSM-5 scores and engaged throughout group and individual sessions. Client's overall symptoms decreased by 20% including anxiety symptoms. Client reported consistently using healthy coping skills including reframing negative thoughts, positive self-talk, putting things into perspective, regulating emotions, and practicing positive affirmations and self-care. Client was highly engaged in her individual sessions and consistent with homework and skill utilization outside of group. Client's consistent application of skills and positive mindset were likely the reason for her reduction in symptoms and improved mood. Issues Still to be Addressed:: Client can continue to benefit from outpatient counseling and aftercare at [facility] to reinforce healthy coping skills and maintain progress. Client can also continue working on further improving thought challenging and practicing self-care. Discharge Recommendations/Instructions:: Client is recommended to follow up with her outpatient providers for continuity of care. Client sees Anabelle Castañeda for ongoing therapy and has an appointment set up for 10/13/20 to prepare for client to return to work. Anabelle Castañeda also manages client medications. [facility] aftercare program was recommended to client but client could not commit at this time due to work. Discharge Handout: Complete Discharge Handout with client on aftercare options and continuity of care.
== END 2020-10-14 23:59 ==
LOC: BHIOP 09:00
PROVIDERS: Referring Provider Psychiatry & Neurology Psychiatry; Visit Provider Psychiatry & Neurology Psychiatry
DX: F31.89 Other bipolar disorder (principal); F41.1 Generalized anxiety disorder; F43.10 Post-traumatic stress disorder, unspecified; Z79.899 Other long term (current) drug therapy
CPT/HCPCS: 90792; H0035; H2012; H2020; T1002; 90832